=== PATIENT | female | born 1980 | race Caucasian/White ===

== ENCOUNTER 2016-10-02 04:00 | Inpatient (IN) ==
[2016-10-02] MEDS ORDERED: Famotidine 20 MG/2 ML VIAL IVP PRN (04:44)
[2016-10-02] MEDS ORDERED: Naloxone 0.4 MG/ML INJ IVP PRN (04:44)
[2016-10-02] MEDS ORDERED: miSOPROStol 25 MCG TABLET VG PRN (04:44)
[2016-10-02] MEDS ORDERED: Metoclopramide 10 MG/2 ML VIAL IVP PRN (04:44)
[2016-10-02] MEDS ORDERED: *HR* Nalbuphine 20 MG/ML AMPUL IVP PRN (04:46)
[2016-10-02 05:25] LABS: Basophils % 0.2 %; Eosinophils # 0.1 K/mcL (0.0-0.6); Eosinophils % 0.9 %; Hematocrit 35.9 % (35.3-44.9); Hemoglobin 12.3 g/dL (11.5-15.4); Lymphocytes % 21.6 %; Mean Corpuscular HGB Conc 34.3 g/dL (31.6-35.5); Mean Corpuscular Hemoglobin 31.8 pg (28.0-33.3); Mean Corpuscular Volume 92.8 fL (83.0-100.0); Mean Platelet Volume 9.1 fL (9.4-12.4); Monocytes # 0.6 K/mcL (0.0-1.3); Neutrophils # 6.3 K/mcL (1.6-8.9); Platelet Count 203 K/mcL (140-400); Red Blood Count 3.87 M/mcL (3.82-4.97); Red Cell Distribution Width 11.7 % (11.5-14.5); Segmented Neutrophils % 69.3 %
--- NOTE | 2016-10-02 05:34 | OB/GYN History & Physical ---
Date of Encounter: 10/02/16 Time of Encounter: 05:29 Assessment and Plan (1) 40 weeks gestation of Current visit: Yes Status: Acute Admit for IOL due to AMA status, subutex use, and nicotine use. GBS negative SVE closed/80/-1 Cytotec 25mcg given vaginally this am. Will place mast when able to do so. Epidural when requested. Anticipate . (2) AMA (advanced maternal age) multigravida 35+ Current visit: Yes Status: Acute Qualifiers: Trimester: third trimester Qualified Code(s): O09.523 - Supervision of elderly multigravida, third trimester (3) Nicotine addiction Current visit: Yes Status: Acute Qualifiers: Nicotine product type: cigarettes Substance use status: uncomplicated Qualified Code(s): F17.210 - Nicotine dependence, cigarettes, uncomplicated (4) Opiate abuse, continuous Current visit: No Status: Acute History of Present Illness Chief complaint: IOL HPI: Ms. Hoff is a 36 year old female presenting at 40 weeks gestation for IOL as recommended by Dr. Jack due to AMA, subutex use, and nicotine use. Blood type O positive. Rubella immune. Serologies and GBS negative. Pt denies complaints today. Past Med Surg Social Fam HX - Past Medical History Medical history: no medical history Psychiatric history: no psych history - Past Surgical History Surgical History: other - Social History Smoking Status: Current every day smoker Packs per day: 1.5 Smokeless Tobacco Status: No Alcohol use: none Drug use: none - Family History Mother Living Status: Still Living Hx Family Cardiac Disorders: No Hx Family Respiratory Disorders: No Hx Family Cancer: No Hx Family GI Disorders: No Hx Family Endocrine Disorder: Yes (Diabetic) Hx Family Neuromuscular Disorders: No Hx Family Neurologic Disorders: No Hx Family HEENT Disorders: No Hx Family Autoimmune Disorders: No Obstetrical History - Pregnancies : 2 Para: 0 Term: 0 : 0 Ab's: 1 Livin Medications and Allergies Acetaminophen [Tylenol] 1,000 mg PO Q6HR 06/20/16 [History] Buprenorphine HCl [Subutex] 8 mg SL DAILY 06/20/16 [History] Vit/Iron Fumarate/FA [ Tablet] 1 tab PO DAILY 06/20/16 [History ] Allergies nitrofurantoin [From Macrobid] Adverse Reaction (Verified 10/02/16 04:29) See Comments pt states that she was told this by her mother Review of System OB All systems PM: reviewed and no additional remarkable complaints except as stated Exam - Vital Signs Vital signs: Initial Vital Signs Temp Pulse Resp BP 97.8 F 86 16 121/80 10/02/16 04:40 10/02/16 04:40 10/02/16 04:40 10/02/16 04:40 - Constitutional Constitutional: well developed, well nourished, no acute distress - HEENT HEENT: Mucus Membranes Moist - Lungs Respiratory exam: CTAB - Cardiovascular Cardiovascular exam: RRR, +S1, +S2 - Abdomen Abdomen: Present: gravid, non tender - Extremities Extremities exam: normal inspection - Vulva Vulva: bilateral: normal - Vagina Vagina: Present: normal moisture - Cervix Dilation: 0 Effacement: 80 Station: -1 - Anus/Rectum Anus/Rectum: Present: normal perianal skin Results All other labs normal. - VTE Reasons for not Prescribing Prophylaxis: Treatment not Indicated - Low risk for VTE
--- NOTE | 2016-10-02 08:26 | OB Labor Progress Note ---
Date of Encounter: 10/02/16 Time of Encounter: 08:24 Labor Progress Note - Subjective Subjective: Pt in bed states is feeling increased contractions, but coping well. - Cervix Cervix: 0/80/0 - Heart Tones Heart Tones: baseline 145 - Interventions Interventions: Attempted to place mast. Pt remains closed. - Plan Plan: Will reassess after 4 hours of cytocec. Anticipate
[2016-10-02] MEDS ORDERED: Ringers Solution, Lactated 500 ML IVC ONE ×2 (08:49→17:56)
[2016-10-02] MEDS: Ringers Solution, Lactated 1,000 ML IVC SCH ×3 (08:55→17:47)
[2016-10-02] MEDS ORDERED: Nicotine 21 MG PATCH.TD24 TD SCH (09:00)
[2016-10-02] MEDS ORDERED: Terbutaline 1 MG/ML VIAL SQ ONE ×2 (09:16)
[2016-10-02] MEDS ORDERED: *HR* Buprenorphine HCl 8 MG TAB.SUBL SL SCH (13:15)
--- NOTE | 2016-10-02 13:15 | OB Labor Progress Note ---
Date of Encounter: 10/02/16 Time of Encounter: 13:13 Labor Progress Note - Subjective Subjective: sleeping upon entering room - Cervix Cervix: 80/0 after mast placement - Heart Tones Heart Tones: 125 moderate - accels, -decels - Interventions Interventions: Mast placed, pt tolerated procedure, - Plan Plan: clear liquid diet, mast until dislodges, will add pitocin if needed for contractions, anticipate
--- NOTE | 2016-10-02 17:54 | Anesthesia Evaluation PreOp ---
Date of Encounter: 10/02/16 Time of Encounter: 17:00 - Past History Planned Operation: Labor Epidural Cardiac History: Denies any Significant Hx Pulmonary History: Smoker SOCCER PLAYER History: Denies Any Significant HX Other Medical History: Other (Bladder reconstruction as child - frequent UTI) Anesthesia History: No Prior Anesthetic Complications, Past Anesthesia ( Gallbladder, bladder reconstruction (age6)) : Yes Alcohol Use: none Drug use: none Medications and Allergies Acetaminophen [Tylenol] 1,000 mg PO Q6HR 06/20/16 [History] Buprenorphine HCl [Subutex] 8 mg SL DAILY 06/20/16 [History] Vit/Iron Fumarate/FA [ Tablet] 1 tab PO DAILY 06/20/16 [History ] Allergies nitrofurantoin [From Macrobid] Adverse Reaction (Verified 10/02/16 04:29) See Comments pt states that she was told this by her mother - Meds/Allergy Pre-op Review Medications Reviewed: Yes Allergies Reviewed: Yes Beta Blockers on Current Med List: No Anesthesia Results - Labs 10/02/16 05:18 Anesthesia Exam Last Vital Signs Temp 97.8 F 10/02/16 04:40 Pulse 86 10/02/16 04:40 Resp 16 10/02/16 04:40 BP 121/80 10/02/16 04:40 Height: 1.6m Weight: 72kg NPO (# of Hours): >4hr Pain Scale: 9 Pain Scale Used: Numeric (1 - 10) - HEENT Pupil (Motor): Pupils equal Mallampati: II Teeth: Normal Oral Opening: Greater than 3 - SOCCER PLAYER LOC: Oriented SOCCER PLAYER Motor: Normal RUE, Normal LUE, Normal RLE, Normal LLE, Normal Face SOCCER PLAYER Sensory: Normal: RUE, LUE, RLE, LLE, Face - Cardiac Rhythm: Regular Murmur: None JVD: No Carotid Bruit: No - Pulmonary Breath Sounds: bilateral Clear Respiratory Effort: Symmetrical Anesthesia Assess/Plan ASA Score: 2 Modified [place] Scale for Level of Consciousness: Cooperative, oriented, and tranquil Anesthetic Plan: Regional Autologous Blood: Yes Monitoring Plan: Standard Monitors Recovery Plan: Other
[2016-10-02] MEDS ORDERED: *HR* Ropivacaine/PF 0.2% 10 ML AMPUL EP ONE (17:56)
[2016-10-02] MEDS ORDERED: *HR* FentaNYL (PF) 100 MCG/2 ML VIAL EP ONE (17:56)
[2016-10-02] MEDS ORDERED: EPHEDrine 50 MG/ML VIAL IVP PRN (17:56)
[2016-10-02] MEDS ORDERED: *HR* FentaNYL (PF) 100 MCG/2 ML VIAL ONE ×2 (17:58→18:52)
[2016-10-02] MEDS ORDERED: *HR* Ropivacaine/PF 0.2% 10 ML AMPUL ONE (17:58)
[2016-10-02] MEDS ORDERED: Epidural Premix (fent/bupiv) 110 ML EP ONE (17:58)
[2016-10-02] MEDS ORDERED: Epidural Premix (fent/bupiv) 110 ML EP SCH (18:00)
--- NOTE | 2016-10-02 18:24 | Anesthesia Procedures ---
Date of Encounter: 10/02/16 Time of Encounter: 18:04 Procedures: Anesthesia - Epidural/Spinal Patient ID/Chart reviewed: Yes Patient examined: Yes OB Eval: Gestational age: 40 OB Eval: : 2 OB Eval: Hx Para: 0 OB Eval: Dilated at (cm): 4 OB Eval: Contractions: Non-stressed pattern Consent Obtained: Yes Supplemental Oxygen: None/Room Air Site Prep: Aseptic Technique, Sterile prep and drape, 0.5% Chlorhexidine/Alcohol Patient position: upright Local Anesthetic: Lidocaine 1% Amount of Local Anesthetic used: 2.5 Touhy Needle Gauge: 18 Touhy Needle Depth (cm): 6 Catheter Depth at Skin (cm): 12 Test Dose (1.5% Lido + Epi): Volume given (mls): 5 Test Dose Result: Negative Loading Dose: Fentanyl (mcg): 100 Loading Dose: Other: Ropivacaine 0.2% 10mL Loading Dose Administered: Thru Catheter Infusion Med: 0.125% Bupivacaine w/ 2 mcg/ml Fentanyl Infusion Rate (mls/hr): 14 (bolus 4mL q15min; max 3/hr) Catheter Secured in Place: Tegaderm, Tape Interspace Used: L4-L5 Loss of Resistance (CRISTINA): Yes Blood: No CSF: No Paresthesia: No Procedure: x1 attempt. Patient tolerated well. Vitals + FHT's: VSS and FHR stable throughout procedure. See nursing documentation.
[2016-10-02] MEDS ORDERED: Lidocaine -MPF 2% 5 ML VIAL INFILT ONE (18:52)
--- NOTE | 2016-10-02 19:58 | OB Labor Progress Note ---
Date of Encounter: 10/02/16 Time of Encounter: 19:56 Labor Progress Note - Subjective Subjective: Pt in bed after epidural. Pt states has "hot spot" on left thigh. More comfortable after bolus. - Cervix Cervix: 3/100/0 - Heart Tones Heart Tones: 120/minimal variability/-accels/ CatII - Gackle Gackle: 3-4 - Interventions Interventions: IUPC placed for contraction monitoring. Prolonged decel after IUPC placement. FSE applied. Recovered to moderate variability with accels after fluid bolus and repositioning/ - Plan Plan: If tracing remains reactive will start pitocin per policy Anticipate
[2016-10-02] MEDS ORDERED: Oxytocin 20 units/ LR 1000 mL 20 UNIT/1,000 ML BAG IVC SCH (20:15)
[2016-10-02] MEDS ORDERED: Lidocaine 1% 20 ML MDV ONE (22:11)
--- NOTE | 2016-10-02 23:20 | OB/GYN Procedure Note ---
Delivery - Delivery Date: 10/02/16 Provider: Gia Jack Intrapartum events: other(please specify) (variable decels) Delivery induction: AROM, mast, misoprostol Delivery monitor: external FHT, external uterine, internal FHT, internal uterine Anesthesia: epidural Estimated Blood Loss: 200 - Infant (s) Infant A Infant Delivery Date: 10/02/16 Delivery Time: 22:44 Presentation: vertex Position: TERRENCE Route of delivery: vacuum extraction Gender: Male Viability: Viable Pounds: 6 Ounces: 5 Weight Gram: 2860 kg at 1 minute: 7 at 5 mins: 8 Shoulder Dystocia: not encountered Specimens collected: cord blood Placenta: spontaneous Cord: nuchal cord, 3 umbilical vessels, nuchal reduced - Repair Episiotomy: none Laceration Description: Periurethral, Perineal - 2nd Degree, Labial - Complications Delivery complications: none - Disposition Mom disposition: stable in LDR [place] disposition: taken to nursery - Comments Comments: Patient progressed to complete dilatation with the fetus starting to crown. I was called into the delivery by the nurse cut roll machine operator due to persistent variable decelerations that were quite deep, requesting evaluation for vacuum-assisted vaginal delivery. Due to the deep variable decelerations, I explained the vacuum procedure to the patient who agreed. Proper placement of the Kiwi vacuum device was noted, and a vacuum-assisted vaginal delivery of a viable male infant was performed with scores of 7 and 8 at one and 5 minutes respectively, and a weight of 6 lbs. 5 oz. A total vacuum time of 43 seconds was noted with a pressure of 550 mmHg. Only one vacuum attempt was required. Placenta delivered spontaneously and appeared to be intact. A second-degree perineal laceration was repaired in usual fashion with 3-0 Vicryl suture. A periurethral and left labial laceration was repaired with 4-0 Vicryl suture. All sponge needle and is counts reported as correct. Rectal sphincter muscle was intact. No shoulder dystocia was encountered. A loose nuchal cord 1 was present and was easily reduced.
[2016-10-03] MEDS ORDERED: Benzocaine/Menthol 56 GM AEROSOL SPRAY TP PRN (01:40)
[2016-10-03] MEDS ORDERED: Oxytocin 20 units/ LR 1000 mL 20 UNIT/1,000 ML BAG IV SCH (01:40)
[2016-10-03] MEDS ORDERED: Oxytocin 20 units/ LR 1000 mL 20 UNIT/1,000 ML BAG IVC ONE (01:40)
[2016-10-03] MEDS: *HR* Buprenorphine HCl 8 MG TAB.SUBL SL SCH ×2 (01:50→13:00)
[2016-10-03] MEDS: Acetaminophen 325 MG TABLET PO PRN ×3 (02:54→22:21)
[2016-10-03] MEDS ORDERED: Ibuprofen 600 MG TABLET PO PRN (07:02)
--- NOTE | 2016-10-03 07:35 | OB/GYN Progress Note ---
Date of Encounter: 10/03/16 Time of Encounter: 07:32 - Assessment and Plan (1) Vaginal delivery Current Visit: Yes Status: Acute Stable in recovery. Continue current management. Subjective - Subjective Patient reports: appetite normal, pain well controlled : doing well Objective - Latest Vital Signs Latest vital signs: Vital Signs Temp Pulse Resp BP Pulse Ox 10/03/16 04:00 97.8 F 68 18 140/72 97 10/03/16 02:15 98.1 F 73 16 144/74 99 10/03/16 01:15 98.1 F 64 16 145/81 97 Intake and Output 10/02/16 10/02/16 10/03/16 15:59 23:59 07:59 Intake Total 1000 / 1000 1000 / 1000 Balance 1000 / 1000 1000 / 1000 Intake: IV Fluids 1000 / 1000 1000 / 1000 Lactated Ringers 1,000 ML 1000 / 1000 1000 / 1000 @ 125 mls/hr IVC .Q8H DORITA Rx#:[id number] Other: Stool Characteristics Normal for Patient Weight 69.944 kg Patient Weight 10/03/16 23:59 Weight 69.944 kg - Exam Lungs: bilateral: normal Chest: Normal S1, Normal S2 Extremities: Present: normal Abdomen: Present: normal appearance, soft Uterus: Present: firm Uterus Position: 1 Finger Above Umbilicus
[2016-10-03] MEDS ORDERED: Prenatal Vit/FA 1 EACH TABLET PO SCH (09:00)
[2016-10-03] MEDS ORDERED: *HR* Buprenorphine HCl 8 MG TAB.SUBL SL SCH (09:00)
[2016-10-03 12:17] LABS: Basophils % 0.1 %; Eosinophils # 0.1 K/mcL (0.0-0.6); Eosinophils % 0.5 %; Hematocrit 30.8 % (35.3-44.9); Immature Granulocytes % 0.8 % (0-4); Lymphocytes # 1.6 K/mcL (0.6-4.6); Lymphocytes % 10.9 %; Mean Corpuscular HGB Conc 34.1 g/dL (31.6-35.5); Mean Corpuscular Hemoglobin 31.4 pg (28.0-33.3); Mean Corpuscular Volume 92.2 fL (83.0-100.0); Mean Platelet Volume 9.6 fL (9.4-12.4); Monocytes # 0.8 K/mcL (0.0-1.3); Monocytes % 5.9 %; Neutrophils # 11.6 K/mcL (1.6-8.9); Platelet Count 183 K/mcL (140-400); Red Blood Count 3.34 M/mcL (3.82-4.97); Red Cell Distribution Width 11.7 % (11.5-14.5); Segmented Neutrophils % 81.8 %
[2016-10-03 12:18] LABS: Hemoglobin 10.5 g/dL (11.5-15.4)
[2016-10-04] MEDS: *HR* Buprenorphine HCl 8 MG TAB.SUBL SL SCH (01:14)
--- NOTE | 2016-10-04 08:16 | Discharge Summary ---
Date of Encounter: 10/04/16 Time of Encounter: 08:14 - Discharge Diagnosis (1) Vaginal delivery Priority: Primary Status: Acute Comments: Continue routine care discharge to guest today follow up in 4-6 weeks (2) Breast feeding status of mother Priority: Secondary Status: Acute Comments: support prn (3) Opiate abuse, continuous Priority: Secondary Status: Acute Comments: subutex continue per RX - Discharge Medications Prescriptions: Ibuprofen [Motrin] 600 mg PO Q6HR PRN #60 tablet PRN Reason: Pain Breast Pump [BREAST PUMP] 1 each .ROUTE AD #1 each Home Medications: Buprenorphine HCl [Subutex] 8 mg SL DAILY 06/20/16 [History] Vit/Iron Fumarate/FA [ Tablet] 1 tab PO DAILY 06/20/16 [History ] Breast Pump [BREAST PUMP] 1 each .ROUTE AD #1 each 10/04/16 [Rx] Ibuprofen [Motrin] 600 mg PO Q6HR PRN #60 tablet 10/04/16 [Rx] Vit/FA 1 each PO DAILY tablet 10/04/16 [Rx] Allergies/Adverse Reactions: Allergies nitrofurantoin [From Macrobid] Adverse Reaction (Verified 10/02/16 04:29) See Comments pt states that she was told this by her mother Data Procedures and tests throughout hospitalization: Laboratory Tests 10/02/16 10/03/16 05:18 11:43 WBC 9.0 14.2 H D RBC 3.87 3.34 L Hgb 12.3 10.5 L D Hct 35.9 30.8 L MCV 92.8 92.2 MCH 31.8 31.4 MCHC 34.3 34.1 RDW 11.7 11.7 Plt Count 203 183 MPV 9.1 L 9.6 Immature Gran % 1.0 0.8 Seg Neutrophils % 69.3 81.8 Lymphocytes % 21.6 10.9 Monocytes % 7.0 5.9 Eosinophils % 0.9 0.5 Basophils % 0.2 0.1 Neutrophils # 6.3 11.6 H Lymphocytes # 2.0 1.6 Monocytes # 0.6 0.8 Eosinophils # 0.1 0.1 Basophils # 0.0 0.0 Labs on day of discharge: Labs from last 24 hours 10/03/16 11:43 WBC 14.2 H D RBC 3.34 L Hgb 10.5 L D Hct 30.8 L MCV 92.2 MCH 31.4 MCHC 34.1 RDW 11.7 Plt Count 183 MPV 9.6 Immature Gran % 0.8 Seg Neutrophils % 81.8 Lymphocytes % 10.9 Monocytes % 5.9 Eosinophils % 0.5 Basophils % 0.1 Neutrophils # 11.6 H Lymphocytes # 1.6 Monocytes # 0.8 Eosinophils # 0.1 Basophils # 0.0 Date of admission: 10/02/16 04:05 Primary care physician: PCP NO Consults: 10/03/16 01:40 Consult to [employer] Former [CONS] Routine Comment: Vaginal delivery, consult needed Consult to Catal[employer] And Special Products Manager [CONS] Routine Reason for SW Consult: suboxone Discharging clinician: Maureen Paris Anticipated date of discharge: 10/04/16 - Patient Status Disposition: Home, Self-Care Condition: Good Functional capacity at discharge: independent ambulation - Discharge Instructions Follow Up With: Taylro Monterroso CNM [Non-Partnered Physician] - (October 31, 2016 @ 1:15 pm) NO,PCP [Primary Care Provider] - - Diet and Activity Activity: increase activity as tolerated Diet: regular diet Hospital Course Reason for admission: induction of labor Delivery: Episiotomy: none Other procedures: none complications: none Discharge diagnosis: IUP at term delivered [place] baby: male (breast and bottle feeding) Time Attestation: Total time spent providing and/or coordinating discharge services: Time Spent: Less than 30 minutes Exam - Constitutional Vitals: Temp Pulse Resp BP Pulse Ox 98.2 F 85 18 137/83 98 10/03/16 15:53 10/03/16 15:53 10/03/16 15:53 10/03/16 15:53 10/03/16 15:53 General appearance IM: A&O X 3, pleasant, answers questions appropriately - Respiratory Respiratory exam: Present: CTAB - Cardiovascular Cardiovascular exam IM: Present: RRR, +S1, +S2 - GI/Abdominal GI/Abdominal exam IM: normal bowel sounds - Uterine Tone: Firm Uterus Position: 2 Fingers Below Umbilicus, Midline - Extremities Exam Extremities exam IM: Present: full ROM, normal capillary refill, normal inspection - Neurological Exam Neurological exam: alert, oriented X3, reflexes normal
[2016-10-04 09:48] VITALS: BP 151/79
== END 2016-10-04 11:00 | disposition home or self-care (01) | DRG 560 ==
LOC: 1NENULAB 04:05 → 1NENUOBS 10-03 01:35
PROVIDERS: ADMIT Registered Nurse; ATTEND Registered Nurse